=== PATIENT | female | born 1970 | race African-American/Black ===

== ENCOUNTER 2022-01-18 01:14 | Emergency (ER) | payer OTHER ==
[2022-01-18] MEDS ORDERED: Acetaminophen 500 MG TAB ONE (01:37)
[2022-01-18] MEDS ORDERED: Ketorolac Tromethamine 30 MG/ML VIAL ONE (01:37)
[2022-01-18] MEDS ORDERED: Morphine 4 MG/ML VIAL ONE (01:39)
== END 2022-01-18 02:05 | disposition home or self-care (01) ==
LOC: CSHERS 01:14
DX: K08.89 Other specified disorders of teeth and supporting structures (principal); E78.5 Hyperlipidemia, unspecified; I10 Essential (primary) hypertension; E78.00 Pure hypercholesterolemia, unspecified; F17.210 Nicotine dependence, cigarettes, uncomplicated; Z79.899 Other long term (current) drug therapy
CPT/HCPCS: 96372; 99282; J1885; J2270

== ENCOUNTER 2022-04-20 08:52 | Emergency (ER) | payer OTHER ==
[2022-04-20] MEDS ORDERED: HYDROcodone/Acetaminophen 10/325 mg Tablet ONE (09:22)
== END 2022-04-20 10:49 | disposition home or self-care (01) ==
LOC: CSHERS 08:52
DX: S22.31XA Fracture of one rib, right side, initial encounter for closed fracture (principal); E78.00 Pure hypercholesterolemia, unspecified; I10 Essential (primary) hypertension; F17.210 Nicotine dependence, cigarettes, uncomplicated; W01.190A Fall on same level from slipping, tripping and stumbling with subsequent striking against furniture, initial encounter; Z79.899 Other long term (current) drug therapy
CPT/HCPCS: 71045

== ENCOUNTER 2023-03-20 14:08 | Emergency (ER) | payer OTHER | END 2023-03-20 15:45 | disposition home or self-care (01) | LOC: CSHERS 14:08 | DX: S80.02XA Contusion of left knee, initial encounter (principal); I10 Essential (primary) hypertension; E78.00 Pure hypercholesterolemia, unspecified; E66.9 Obesity, unspecified; F17.210 Nicotine dependence, cigarettes, uncomplicated; X58.XXXA Exposure to other specified factors, initial encounter ==

== ENCOUNTER 2023-08-15 20:34 | Emergency (ER) | payer OTHER ==
[2023-08-15 21:49] LABS: SARS-CoV-2 NAA Rapid Test Not Detected (NotDetected)
== END 2023-08-15 21:00 | disposition home or self-care (01) ==
LOC: CSHERS 20:34
DX: J06.9 Acute upper respiratory infection, unspecified (principal); I10 Essential (primary) hypertension; F17.210 Nicotine dependence, cigarettes, uncomplicated; Z79.899 Other long term (current) drug therapy
CPT/HCPCS: 71046

== ENCOUNTER 2023-10-16 10:30 | Outpatient (CLI) | payer OTHER | END 2023-10-16 10:31 | disposition home or self-care (01) | LOC: CSHCT 10:30 | PROVIDERS: ATTEND Family Medicine | DX: Z12.2 Encounter for screening for malignant neoplasm of respiratory organs (principal); F17.210 Nicotine dependence, cigarettes, uncomplicated; M25.512 Pain in left shoulder; M19.012 Primary osteoarthritis, left shoulder | CPT/HCPCS: 71271 ==

== ENCOUNTER 2024-06-08 08:49 | Outpatient (CLI) | payer OTHER | END 2024-06-08 08:50 | disposition home or self-care (01) | LOC: CSHMRI 08:49 | PROVIDERS: ATTEND Orthopaedic Surgery | DX: M75.101 Unspecified rotator cuff tear or rupture of right shoulder, not specified as traumatic (principal); M75.81 Other shoulder lesions, right shoulder; M25.811 Other specified joint disorders, right shoulder ==